=== PATIENT | female | born 1960 | race Caucasian/White ===

== ENCOUNTER → 2017-08-23 08:55 | Outpatient (CLI) | payer OTHER, SELFPAY ==
--- NOTE | 2017-08-23 | DI.MG.S_ITS ---
UNILATERAL RIGHT DIGITAL DIAGNOSTIC MAMMOGRAM 3D/2D WITH ADDITIONAL VIEWS: 08/23/2017 CLINICAL: Additional evaluation requested from prior study. Family history of breast cancer. Comparison is made to exams dated: 08/05/2017 mammogram, 07/05/2016 mammogram, and 07/04/2015 mammogram - [facility]. The tissue of the right breast is heterogeneously dense. This may lower the sensitivity of mammography. There is a 0.9 cm x 1 cm oval equal density mass in the right breast at 3 o'clock anterior depth. This is seen in additional views. No other significant masses or calcifications are seen in the breast. IMPRESSION: INCOMPLETE: NEEDS ADDITIONAL IMAGING EVALUATION The 0.9 cm x 1 cm oval equal density mass in the right breast is indeterminate. An ultrasound is recommended. This exam was interpreted at Station ID: [id number]. NOTE: For mammograms, a report in lay terms will be sent to the patient. Approximately 15% of breast malignancies will not be visualized mammographically. In the management of a palpable breast mass, a negative mammogram must not discourage biopsy of a clinically suspicious lesion. Electronically Signed By: Chanel fernandez/niya:08/23/2017 11:09:30 letter sent: Additional Imaging Needed ACR BI-RADS Category 0: Incomplete 3340F
--- NOTE | 2017-08-23 08:58 | DI.US.S_ITS ---
ULTRASOUND OF RIGHT BREAST: 08/23/2017 CLINICAL: Patient returns for additional imaging over a suspected mass in the right breast. Comparison is made to exams dated: 08/05/2017 mammogram, 07/05/2016 mammogram, and 07/04/2015 mammogram - [facility]. Color flow and real-time ultrasound of the right breast were performed on the areas of interest. Benson scale images of the real-time examination were reviewed. There is a 0.7 cm x 0.5 cm x 0.5 cm lobulated cyst with a septated internal wall in the right breast at 3 o'clock anterior depth. This lobulated cyst displays internal echoes and posterior acoustic enhancement. This correlates with mammography findings. IMPRESSION: PROBABLY BENIGN - FOLLOW-UP RECOMMENDED The 0.7 cm x 0.5 cm x 0.5 cm lobulated cyst in the right breast is consistent with complicated cysts and is probably benign. A follow-up ultrasound in 6 months is recommended to demonstrate stability. This exam was interpreted at Station ID: [id number]. Electronically Signed By: Chanel Wilson M.D. lk/:08/23/2017 13:04:54 letter sent: Followup Recommended Ultrasound BI-RADS: 3 Probably benign
== END ==
PROVIDERS: PCP Family Medicine; Visit Provider Family Medicine
DX: R92.8 Other abnormal and inconclusive findings on diagnostic imaging of breast (principal); Z80.3 Family history of malignant neoplasm of breast
CPT/HCPCS: 76642; 77065; G0279

== ENCOUNTER → 2017-10-10 12:36 | Outpatient (CLI) | payer OTHER, SELFPAY ==
--- NOTE | 2017-10-10 14:43 | DI.US.S_ITS ---
ULTRASOUND GUIDED ASPIRATION RIGHT BREAST WITH POST ULTRASOUND IMAGIN10/10/2017 CLINICAL: Cyst aspiration right breast. Correlation is made to exams dated: 08/23/2017 mammogram, 08/23/2017 ultrasound, and 08/05/2017 mammogram - [facility]. An aspiration was performed for the concerning 7 mm x 5 mm x 5 mm circumscribed lobulated cystic versus solid mass located in the right breast at 2 o'clock anterior depth. This was described on the previous ultrasound report. The skin was prepped in the usual manner. Local anesthetic was administered to the access site. The abnormality was approached from the lateral aspect. A 20 gauge needle was percutaneously placed into the abnormality under ultrasound guidance. Once the needle was documented to be in the correct location, 0.5 cc of clear yellow fluid was aspirated. The patient received additional local anesthetic during the procedure. A sterile dressing was applied to the access site. Post procedure ultrasound imaging demonstrates the abnormality to be no longer visible. The aspirated fluid was discarded with the patient's knowledge. IMPRESSION: ASPIRATION Aspiration of the 7 cm x 5 cm x 5 cm cystic versus solid mass in the right breast anterior depth was successfu, and the structure fully resolved establishing cyst as the original causel. Post ultrasound imaging revealed the abnormality to be no longer visible. Return to annual mammogram screening schedule is recommended. Ronak Raines M.D. [facility]/:10/11/2017 16:06:27
== END ==
PROVIDERS: PCP Family Medicine; Visit Provider Surgery
DX: R92.8 Other abnormal and inconclusive findings on diagnostic imaging of breast (principal); N60.01 Solitary cyst of right breast
CPT/HCPCS: 10022; 76942

== ENCOUNTER → 2018-02-10 09:51 | Outpatient (CLI) | payer OTHER, SELFPAY ==
--- NOTE | 2018-02-10 09:54 | DI.RAD.S_ITS ---
PROCEDURE: XR CHEST 2V INDICATIONS: cough TECHNIQUE: 2 views of the chest were acquired. COMPARISON: [facility], , CHEST 2 VIEW, 05/30/2017, 14:48. FINDINGS: Surgical changes and devices: None. Lungs and pleura: No pleural effusions or pneumothorax. Lungs are clear. Mediastinum: Mediastinal contours are normal. Heart size is normal. Bones and chest wall: No suspicious bony abnormalities. Soft tissues appear unremarkable. IMPRESSION: No acute disease. Dictated by: Prosper Hood M.D. on 02/10/2018 at 10:36 Approved by: Prosper Hood M.D. on 02/10/2018 at 10:37
== END ==
PROVIDERS: PCP Family Medicine; Visit Provider Registered Nurse
DX: R05 Cough (principal)
CPT/HCPCS: 71046

== ENCOUNTER → 2018-07-14 15:19 | Outpatient (CLI) | payer OTHER, SELFPAY ==
--- NOTE | 2018-07-14 | DI.RAD.S_ITS ---
PROCEDURE: XR WRIST RT MIN 3V INDICATIONS: RT HAND/WRIST PAIN, POST FALL TECHNIQUE: 4 views of the wrist were acquired. COMPARISON: None. FINDINGS: Bones: No fractures or dislocations. No suspicious bony lesions. First CMC and triscaphe joint degeneration Scaphoid view: Negative Soft tissues: No suspicious soft tissue calcifications. IMPRESSION: No fracture. If the patient's symptoms do not improve recommend followup radiographs in 10 days to assess for healing sclerosis/occult injury. Dictated by: Prosper Hood M.D. on 07/14/2018 at 16:10 Approved by: Prosper Hood M.D. on 07/14/2018 at 16:11
--- NOTE | 2018-07-14 | DI.RAD.S_ITS ---
PROCEDURE: XR HAND RT MIN 3V INDICATIONS: RT HAND/WRIST PAIN, POST FALL TECHNIQUE: 3 views of the hand(s) acquired. COMPARISON: None. FINDINGS: Bones: No fractures or dislocations. Carpal bones are normally aligned. No suspicious bony lesions. First CMC and triscaphe joint degeneration Soft tissues: No suspicious soft tissue calcifications. IMPRESSION: No fracture. If the patient's symptoms do not improve recommend followup radiographs in 10 days to assess for healing sclerosis/occult injury. Dictated by: Prosper Hood M.D. on 07/14/2018 at 16:07 Approved by: Prosper Hood M.D. on 07/14/2018 at 16:10
== END ==
PROVIDERS: PCP Nurse Practitioner Family; Visit Provider Family Medicine
DX: M79.641 Pain in right hand (principal); M25.531 Pain in right wrist; M18.11 Unilateral primary osteoarthritis of first carpometacarpal joint, right hand
CPT/HCPCS: 73110; 73130

== ENCOUNTER → 2018-08-06 14:29 | Outpatient (CLI) | payer OTHER, SELFPAY ==
--- NOTE | 2018-08-06 | DI.MG.S_ITS ---
BILATERAL DIGITAL SCREENING MAMMOGRAM 3D/2D WITH CAD: 08/06/2018 CLINICAL: Routine screening. Family history of breast cancer. Comparison is made to exams dated: 08/05/2017 mammogram, 07/05/2016 mammogram, and 07/04/2015 mammogram - [facility]. The tissue of both breasts is heterogeneously dense. This may lower the sensitivity of mammography. Current study was also evaluated with a Computer Aided Detection (CAD) system. There is a cluster of fine calcifications in the left breast at 6 o'clock anterior depth. No other significant masses, calcifications, or other findings are seen in either breast. IMPRESSION: INCOMPLETE: NEEDS ADDITIONAL IMAGING EVALUATION The cluster of fine calcifications in the left breast is indeterminate. A diagnostic mammogram is recommended. This exam was interpreted at Station ID: [id number]. NOTE: For mammograms, a report in lay terms will be sent to the patient. Approximately 15% of breast malignancies will not be visualized mammographically. In the management of a palpable breast mass, a negative mammogram must not discourage biopsy of a clinically suspicious lesion. Electronically Signed By: Prachi vincent/niya:08/06/2018 20:54:09 copy to: Rosie Singletary letter sent: Additional Imaging Needed ACR BI-RADS Category 0: Incomplete 3340F
== END ==
PROVIDERS: PCP Nurse Practitioner Family; Visit Provider Family Medicine
DX: Z12.31 Encounter for screening mammogram for malignant neoplasm of breast (principal); Z80.3 Family history of malignant neoplasm of breast
CPT/HCPCS: 77063; 77067

== ENCOUNTER → 2018-08-14 14:15 | Outpatient (CLI) | payer OTHER, SELFPAY ==
--- NOTE | 2018-08-14 | DI.US.S_ITS ---
LIMITED ULTRASOUND OF LEFT BREAST: 08/14/2018 CLINICAL: Additional imaging of left breast. Comparison is made to exams dated: 08/14/2018 mammogram, 08/06/2018 mammogram, 08/23/2017 mammogram, and 08/05/2017 mammogram - [facility]. Real-time and Doppler ultrasound of the left breast 6-7 o'clock region were performed. Benson scale images of the real-time examination were reviewed. Targeted ultrasound along the 5-7 o'clock positions of the left breast demonstrates no ultrasound correlate for the grouped coarse and punctate calcifications measuring 0.3 x 0.2 x 0.2 cm near the 6-7 o'clock positions seen on comparison screening and diagnostic mammography. No masses or abnormalities are identfiied by targeted ultrasound. IMPRESSION: PROBABLY BENIGN Targeted ultrasound along the 5-7 o'clock positions of the left breast demonstrates no ultrasound correlate for the grouped coarse and punctate calcifications measuring 0.3 x 0.2 x 0.2 cm near the 6-7 o'clock positions seen on comparison screening and diagnostic mammography. A follow-up mammogram in 6 months is recommended to demonstrate stability. The patient is advised to monitor her breasts and to return sooner for re-evaluation should she feel anything grow or change. This exam was interpreted at Station ID: [id number]. Electronically Signed By: Dorian Dillard M.D. ecl/:08/15/2018 08:47:54 copy to: Rosie Singletary letter sent: Followup Recommended Ultrasound BI-RADS: 3 Probably benign
--- NOTE | 2018-08-14 | DI.MG.S_ITS ---
UNILATERAL LEFT DIGITAL DIAGNOSTIC MAMMOGRAM 3D/2D WITH ADDITIONAL VIEWS: 08/14/2018 CLINICAL: Additional evaluation requested from prior study. Comparison is made to exams dated: 08/06/2018 mammogram, 08/23/2017 mammogram, and 08/05/2017 mammogram - [facility]. The tissue of left breast is heterogeneously dense. This may lower the sensitivity of mammography. Previously identified calcifications in the left breast at 6 o'clock position anterior depth on comparison screening mammograms persists with additional views. These demonstrate a grouped distribution with coarse and punctate morphology, measure 0.3 x 0.2 x 0.2 cm in extent, and localize near the 6-7 o'clock positions on additional views. IMPRESSION: INCOMPLETE: NEEDS ADDITIONAL IMAGING EVALUATION 0.3 x 0.2 x 0.2 cm persistent grouped coarse and punctate calcifications in the left breast near 6-7 o'clock position. A targeted ultrasound is recommended for further evaluation, and will be performed immediately following this exam. This exam was interpreted at Station ID: [id number]. NOTE: For mammograms, a report in lay terms will be sent to the patient. Approximately 15% of breast malignancies will not be visualized mammographically. In the management of a palpable breast mass, a negative mammogram must not discourage biopsy of a clinically suspicious lesion. Electronically Signed By: Dorian Dillard M.D. ecl/:08/14/2018 15:12:52 copy to: Rosie Singletary [facility] BI-RADS Category 0: Incomplete 3340F
== END ==
PROVIDERS: PCP Nurse Practitioner Family; Visit Provider Family Medicine
DX: R92.1 Mammographic calcification found on diagnostic imaging of breast (principal)
CPT/HCPCS: 76642; 77065; G0279

== ENCOUNTER → 2019-01-29 16:02 | Outpatient (CLI) | payer OTHER, SELFPAY ==
--- NOTE | 2019-01-29 | DI.RAD.S_ITS ---
PROCEDURE: XR HAND LT 2V INDICATIONS: BILATERAL THUMB JOINT PAIN TECHNIQUE: 3 views of the hand(s) acquired. COMPARISON: [facility], CR, XR HAND RT MIN 3V, 07/14/2018, 15:25. FINDINGS: Bones: No fractures or dislocations. Carpal bones are normally aligned. No suspicious bony lesions. Mild first CMC degenerative narrowing. Soft tissues: No suspicious soft tissue calcifications. IMPRESSION: Mild first CMC osteoarthritis. Dictated by: Ronda Henley M.D. on 01/29/2019 at 17:58 Approved by: Ronda Henley M.D. on 01/29/2019 at 17:58
--- NOTE | 2019-01-29 | DI.RAD.S_ITS ---
PROCEDURE: XR HAND RT 2V INDICATIONS: BILATERAL THUMB JOINT PAIN TECHNIQUE: 3 views of the hand(s) acquired. COMPARISON: [facility], , XR HAND RT MIN 3V, 07/14/2018, 15:25. FINDINGS: Bones: No fractures or dislocations. Carpal bones are normally aligned. No suspicious bony lesions. First CMC degenerative narrowing is present. Soft tissues: No suspicious soft tissue calcifications. IMPRESSION: First CMC osteoarthritis. Dictated by: Ronda Henley M.D. on 01/29/2019 at 17:57 Approved by: Ronda Henley M.D. on 01/29/2019 at 17:58
== END ==
PROVIDERS: PCP Nurse Practitioner Family; Visit Provider Nurse Practitioner Family
DX: M25.542 Pain in joints of left hand (principal); M25.541 Pain in joints of right hand; M18.0 Bilateral primary osteoarthritis of first carpometacarpal joints
CPT/HCPCS: 73120

== ENCOUNTER → 2019-04-20 08:14 | Outpatient (CLI) | payer OTHER, SELFPAY ==
--- NOTE | 2019-04-20 | DI.MG.S_ITS ---
UNILATERAL LEFT DIGITAL DIAGNOSTIC MAMMOGRAM 3D/2D: 04/20/2019 CLINICAL: Short term follow up. Comparison is made to exams dated: 08/14/2018 mammogram, 08/06/2018 mammogram, 08/05/2017 mammogram, 07/05/2016 mammogram, and 08/14/2018 [facility]. The tissue of left breast is heterogeneously dense. This may lower the sensitivity of mammography. Previously identified grouped coarse and punctate calcifications measuring approximately 0.3 x 0.2 x 0.2 cm in extent near the 6-7 o'clock positions on comparison screening mammogram of 08/06/28 and diagnostic mammograms of 08/13/18 appear stable in appearance to prior exams. IMPRESSION: PROBABLY BENIGN Previously identified grouped coarse and punctate calcifications measuring approximately 0.3 x 0.2 x 0.2 cm in extent near the 6-7 o'clock positions on comparison screening mammogram of 08/06/28 and diagnostic mammograms of 08/13/18 appear stable in appearance to prior exams. A follow-up mammogram in 6 months is recommended to demonstrate stability. Patient will be due for bilateral mammography at that time. These findings and recommendations were discussed with the patient by telephone by Dr. Dillard at approximately 12:10 pm on 04/20/2019. The patient was advised to monitor her breasts and to return sooner for reevaluation if she feels anything grow or change in her breasts. This exam was interpreted at Station ID: [id number]. NOTE: For mammograms, a report in lay terms will be sent to the patient. Approximately 15% of breast malignancies will not be visualized mammographically. In the management of a palpable breast mass, a negative mammogram must not discourage biopsy of a clinically suspicious lesion. Electronically Signed By: Dorian Dillard M.D. ecl/:04/20/2019 12:12:06 letter sent: Followup Recommended ACR BI-RADS Category 3: Probably benign 3343F
== END ==
PROVIDERS: PCP Nurse Practitioner Family; Visit Provider Nurse Practitioner Family
DX: R92.8 Other abnormal and inconclusive findings on diagnostic imaging of breast (principal); R92.1 Mammographic calcification found on diagnostic imaging of breast
CPT/HCPCS: 77065; G0279

== ENCOUNTER 2019-04-30 09:44 | Outpatient (CLI) | payer OTHER, SELFPAY | END 2019-05-05 09:36 | disposition home or self-care (01) | PROVIDERS: PCP Nurse Practitioner Family; Visit Provider Nurse Practitioner Family | DX: R20.9 Unspecified disturbances of skin sensation (principal) | CPT/HCPCS: 95886; 95911 ==

== ENCOUNTER → 2019-10-02 08:02 | Outpatient (CLI) | payer OTHER, SELFPAY ==
--- NOTE | 2019-10-02 | DI.MG.S_ITS ---
BILATERAL DIGITAL DIAGNOSTIC MAMMOGRAM 3D/2D SHORT-TERM FOLLOW-UP: 10/02/2019 CLINICAL: Short follow up due bilateral. Comparison is made to exams dated: 04/20/2019 mammogram, 08/14/2018 mammogram, 08/06/2018 mammogram, 08/05/2017 mammogram, and 07/05/2016 mammogram - [facility]. The tissue of both breasts is heterogeneously dense. This may lower the sensitivity of mammography. There are stable grouped amorphous coarse calcifications in the left breast at 6 o'clock anterior depth. These are seen in additional views. No suspicious changes. No other significant masses, calcifications, or other findings are seen in either breast. IMPRESSION: PROBABLY BENIGN The stable grouped amorphous coarse calcifications in the left breast most likely are fat necrosis or a degenerating fibroadenoma and are probably benign. A follow-up left mammogram in 6 months is recommended to demonstrate continued stability. The right breast mammogram is stable. Findings and recommendations were conveyed to the patient at time of exam. This exam was interpreted at Station ID: [id number]. NOTE: For mammograms, a report in lay terms will be sent to the patient. Approximately 15% of breast malignancies will not be visualized mammographically. In the management of a palpable breast mass, a negative mammogram must not discourage biopsy of a clinically suspicious lesion. Electronically Signed By: Prachi vincent/:10/02/2019 09:28:47 letter sent: Followup Recommended ACR BI-RADS Category 3: Probably benign 3343F
== END ==
PROVIDERS: Referring Provider Nurse Practitioner Family; Visit Provider Nurse Practitioner Family
DX: R92.8 Other abnormal and inconclusive findings on diagnostic imaging of breast (principal); R92.1 Mammographic calcification found on diagnostic imaging of breast
CPT/HCPCS: 77066; G0279

== ENCOUNTER → 2020-03-24 14:53 | Outpatient (CLI) | payer OTHER, SELFPAY ==
--- NOTE | 2020-03-24 | DI.MG.S_ITS ---
UNILATERAL LEFT DIGITAL DIAGNOSTIC MAMMOGRAM 3D/2D SHORT-TERM FOLLOW-UP: 03/24/2020 CLINICAL: Patient returns for a 6 month follow up of the left breast. Comparison is made to exams dated: 10/02/2019 mammogram, 04/20/2019 mammogram, and 08/14/2018 mammogram - [facility]. The tissue of left breast is heterogeneously dense. This may lower the sensitivity of mammography. There are stable grouped amorphous coarse calcifications in the left breast at 6 o'clock anterior depth. These are seen in additional views. No other significant masses or calcifications are seen in the breast. IMPRESSION: PROBABLY BENIGN The stable grouped amorphous coarse calcifications in the left breast most likely are fat necrosis or a degenerating fibroadenoma and are probably benign. A follow-up mammogram in 6 months is recommended to demonstrate stability. Future imaging is recommended as follows: August 2020 follow-up left mammogram at the time of bilateral sceening. This exam was interpreted at Station ID: [id number]. NOTE: For mammograms, a report in lay terms will be sent to the patient. Approximately 15% of breast malignancies will not be visualized mammographically. In the management of a palpable breast mass, a negative mammogram must not discourage biopsy of a clinically suspicious lesion. Electronically Signed By: Juan M Mc acr/:03/24/2020 15:43:12 letter sent: Followup Recommended ACR BI-RADS Category 3: Probably benign 3343F
== END ==
PROVIDERS: Referring Provider Nurse Practitioner Family; Visit Provider Nurse Practitioner Family
DX: R92.8 Other abnormal and inconclusive findings on diagnostic imaging of breast (principal); R92.1 Mammographic calcification found on diagnostic imaging of breast
CPT/HCPCS: 77065; G0279

== ENCOUNTER → 2020-07-13 07:31 | Outpatient (CLI) | payer OTHER, SELFPAY ==
[2020-07-13] MEDS: COVID-19 VACC #1, MRNA(MOD) 100 MCG/0.5 ML VIAL IM (07:41)
== END ==
PROVIDERS: Referring Provider Internal Medicine; Visit Provider Internal Medicine
DX: Z23 Encounter for immunization (principal)
CPT/HCPCS: 0011A; 91301

== ENCOUNTER → 2020-08-10 07:45 | Outpatient (CLI) | payer OTHER, SELFPAY ==
[2020-08-10] MEDS: COVID-19 VACC #2, MRNA(MOD) 100 MCG/0.5 ML VIAL IM (07:48)
== END ==
PROVIDERS: Visit Provider Internal Medicine
DX: Z23 Encounter for immunization (principal)
CPT/HCPCS: 0012A; 91301

== ENCOUNTER → 2020-09-19 12:24 | Outpatient (CLI) | payer OTHER, SELFPAY ==
--- NOTE | 2020-09-19 | DI.RAD.S_ITS ---
PROCEDURE: XR CHEST 2V INDICATIONS: COUGH TECHNIQUE: 2 views of the chest were acquired. COMPARISON: [facility], , XR CHEST 2V, 02/10/2018, 10:53. [facility], , CHEST 2 VIEW, 05/30/2017, 14:48. FINDINGS: Surgical changes and devices: None. Lungs and pleura: Lungs are clear. No pleural effusions or pneumothorax. Mediastinum: Mediastinal contours are normal. Heart size is normal. Bones and chest wall: No suspicious bony abnormalities. Soft tissues appear unremarkable. IMPRESSION: No acute cardiopulmonary process demonstrated radiographically. Dictated by: Mike Kevin M.D. on 09/19/2020 at 13:44 Approved by: Mike Kevin M.D. on 09/19/2020 at 13:44
== END ==
PROVIDERS: PCP Family Medicine; Referring Provider Family Medicine; Visit Provider Family Medicine
DX: R05 Cough (principal); R07.89 Other chest pain; M54.6 Pain in thoracic spine
CPT/HCPCS: 71046

== ENCOUNTER → 2020-10-31 12:41 | Outpatient (CLI) | payer BC, SELFPAY ==
--- NOTE | 2020-10-31 | DI.MG.S_ITS ---
BILATERAL DIGITAL DIAGNOSTIC MAMMOGRAM 3D/2D: 10/31/2020 CLINICAL: Short follow up, due bilateral. Comparison is made to exams dated: 03/24/2020 mammogram, 10/02/2019 mammogram, 04/20/2019 mammogram, 08/14/2018 mammogram, 08/06/2018 mammogram, and 08/05/2017 mammogram - [facility]. The tissue of both breasts is heterogeneously dense. This may lower the sensitivity of mammography. There are stable grouped amorphous coarse calcifications in the left breast at 6 o'clock anterior depth. These are seen in additional views. These calcifications have been stable dating back to the prior exam from 08/14/2018, and are therefore considered benign. No other significant masses, calcifications, or other findings are seen in either breast. IMPRESSION: BENIGN The stable grouped amorphous coarse calcifications in the left breast most likely are fat necrosis or a degenerating fibroadenoma and are benign. There is no mammographic evidence of malignancy. A 1 year screening mammogram is recommended. This exam was interpreted at Station ID: [id number]. NOTE: For mammograms, a report in lay terms will be sent to the patient. Approximately 15% of breast malignancies will not be visualized mammographically. In the management of a palpable breast mass, a negative mammogram must not discourage biopsy of a clinically suspicious lesion. Electronically Signed By: Bowen andino/niya:10/31/2020 14:09:32 letter sent: Normal Exam ACR BI-RADS Category 2: Benign Finding(s) 3342F
== END ==
PROVIDERS: PCP Family Medicine; Referring Provider Family Medicine; Visit Provider Family Medicine
DX: R92.8 Other abnormal and inconclusive findings on diagnostic imaging of breast (principal); R92.1 Mammographic calcification found on diagnostic imaging of breast
CPT/HCPCS: 77066; G0279

== ENCOUNTER → 2021-04-05 17:04 | Outpatient (ROUT) | payer OTHER, SELFPAY ==
[2021-04-05 17:56] LABS: COVID19 - ADMIT (NP swab/PCR) Negative (Negative)
== END ==
PROVIDERS: PCP Family Medicine; Visit Provider Internal Medicine
DX: Z20.822 Contact with and (suspected) exposure to COVID-19 (principal)
CPT/HCPCS: U0003

== ENCOUNTER → 2022-02-13 17:31 | Outpatient (CLI) | payer OTHER, SELFPAY ==
--- NOTE | 2022-02-13 17:38 | DI.MG.S_ITS ---
BILATERAL DIGITAL SCREENING MAMMOGRAM 3D/2D WITH CAD: 02/13/2022 CLINICAL: Routine screening. Family history of breast cancer. Comparison is made to exams dated: 10/31/2020 mammogram, 03/24/2020 mammogram, 10/02/2019 mammogram, 04/20/2019 mammogram, and 08/06/2018 mammogram - [facility]. Both breasts are heterogeneously dense, which may obscure small masses (category c / 51-75% glandular tissue). Current study was also evaluated with a Computer Aided Detection (CAD) system. No significant masses, calcifications, or other findings are seen in either breast. There has been no significant interval change. IMPRESSION: NEGATIVE There is no mammographic evidence of malignancy. A 1 year screening mammogram is recommended. Based on the Tyrer Cuzick model (a risk assessment model) the patient's lifetime risk is 13.3% and her 10 year risk is 5.2%. According to the ACR, ACS, and NCCN guidelines, an annual breast MRI exam along with mammogram is recommended if the patient's lifetime risk is 20% or greater. This exam was interpreted at Station ID: [id number]. NOTE: For mammograms, a report in lay terms will be sent to the patient. Approximately 15% of breast malignancies will not be visualized mammographically. In the management of a palpable breast mass, a negative mammogram must not discourage biopsy of a clinically suspicious lesion. Electronically Signed By: Jann simmons/niya:02/14/2022 09:33:08 letter sent: Normal Exam ACR BI-RADS Category 1: Negative 3341F
== END ==
PROVIDERS: PCP Family Medicine; Referring Provider Family Medicine; Visit Provider Family Medicine
DX: Z12.31 Encounter for screening mammogram for malignant neoplasm of breast (principal); Z80.3 Family history of malignant neoplasm of breast
CPT/HCPCS: 77063; 77067

== ENCOUNTER → 2022-04-03 12:05 | Outpatient (CLI) | payer OTHER, SELFPAY ==
--- NOTE | 2022-04-03 12:10 | DI.RAD.S_ITS ---
PROCEDURE: XR FOREARM LT 2V INDICATIONS: PAIN TECHNIQUE: 2 views of the forearm were acquired. COMPARISON: None. FINDINGS: Bones: No fractures or dislocations. No suspicious bony lesions. Soft tissues: No suspicious soft tissue calcifications or masses. IMPRESSION: No fracture. No osseous lesion. If symptoms and/or clinical suspicion for pathology persists, further assessment with repeat radiographs (7-10 days) or advanced imaging (e.g. CT, MRI or bone scan) should be considered. Dictated by: Damari Low MD, PhD on 04/03/2022 at 13:34 Approved by: Damari Low MD, PhD on 04/03/2022 at 13:34
--- NOTE | 2022-04-03 12:10 | DI.RAD.S_ITS ---
PROCEDURE: XR ELBOW LT MIN 3V INDICATIONS: PAIN TECHNIQUE: 3 views of the elbow were acquired. COMPARISON: None. FINDINGS: Bones: No fractures or dislocations. No suspicious bony lesions. Soft tissues: No elbow joint effusion. No suspicious soft tissue calcifications. IMPRESSION: No fracture. No osseous lesion. If symptoms and/or clinical suspicion for pathology persists, further assessment with repeat radiographs (7-10 days) or advanced imaging (e.g. CT, MRI or bone scan) should be considered. Dictated by: Damari Low MD, PhD on 04/03/2022 at 13:34 Approved by: Damari Low MD, PhD on 04/03/2022 at 13:35
== END ==
PROVIDERS: PCP Family Medicine; Referring Provider Registered Nurse; Visit Provider Registered Nurse
DX: M79.602 Pain in left arm (principal)
CPT/HCPCS: 73080; 73090

== ENCOUNTER → 2022-09-21 16:17 | Outpatient (CLI) | payer OTHER, SELFPAY ==
--- NOTE | 2022-09-21 16:20 | DI.RAD.S_ITS ---
PROCEDURE: XR CHEST 2V INDICATIONS: Rib pain TECHNIQUE: 2 views of the chest were acquired. COMPARISON: [facility], CR, XR CHEST 2V, 09/19/2020, 12:27. FINDINGS: Surgical changes and devices: None. Lungs and pleura: Lungs are clear. No pleural effusions or pneumothorax. Mediastinum: Mediastinal contours are normal. Heart size is normal. Bones and chest wall: No suspicious bony abnormalities. Soft tissues appear unremarkable. IMPRESSION: No acute cardiopulmonary disease. Dictated by: Brian Millard [facility] Interpreted: Ronda Henley MD on 09/21/2022 at 16:45 Transcribed by: MARYANN on 09/21/2022 at 16:46 Approved by: Ronda Henley M.D. on 09/21/2022 at 22:37
== END ==
PROVIDERS: Referring Provider Registered Nurse; Visit Provider Registered Nurse
DX: R07.81 Pleurodynia (principal)
CPT/HCPCS: 71046

== ENCOUNTER → 2023-04-17 15:57 | Outpatient (CLI) | payer BC, SELFPAY ==
--- NOTE | 2023-04-17 | DI.MG.S_ITS ---
BILATERAL DIGITAL SCREENING MAMMOGRAM 3D/2D WITH CAD: 04/17/2023 CLINICAL: Routine screening. Family history of breast cancer. Comparison is made to exams dated: 02/13/2022 mammogram, 10/31/2020 mammogram, and 10/02/2019 mammogram - [facility]. Both breasts are heterogeneously dense, which may obscure small masses (category c / 51-75% glandular tissue). Current study was also evaluated with a Computer Aided Detection (CAD) system. No significant masses, calcifications, or other findings are seen in either breast. There has been no significant interval change. IMPRESSION: NEGATIVE There is no mammographic evidence of malignancy. A 1 year screening mammogram is recommended. Based on the Tyrer Cuzick model (a risk assessment model) the patient's lifetime risk is 15.4% and her 10 year risk is 6.4%. According to the ACR, ACS, and NCCN guidelines, an annual breast MRI exam along with mammogram is recommended if the patient's lifetime risk is 20% or greater. This exam was interpreted at Station ID: [id number]. NOTE: For mammograms, a report in lay terms will be sent to the patient. Approximately 15% of breast malignancies will not be visualized mammographically. In the management of a palpable breast mass, a negative mammogram must not discourage biopsy of a clinically suspicious lesion. Electronically Signed By: Bowen andino/niya:04/18/2023 08:45:52 letter sent: Normal Exam ACR BI-RADS Category 1: Negative 3341F
== END ==
PROVIDERS: Referring Provider Family Medicine; Visit Provider Family Medicine
DX: Z12.31 Encounter for screening mammogram for malignant neoplasm of breast (principal); Z80.3 Family history of malignant neoplasm of breast; R92.333 Mammographic heterogeneous density, bilateral breasts
CPT/HCPCS: 77063; 77067

== ENCOUNTER → 2024-03-13 15:38 | Outpatient (CLI) | payer BC, SELFPAY ==
--- NOTE | 2024-03-13 15:39 | DI.MRI.S_ITS ---
PROCEDURE: MR KNEE RT WO CON INDICATIONS: INTERNAL DERANGEMENT OF RT KNEE TECHNIQUE: Noncontrast sagittal PD fast spin echo and T2 fast spin echo with fat saturation, sagittal 3-D FLASH with fat saturation; coronal T1 spin echo and PD fast spin echo with fat saturation, and axial PD fast spin echo with fat saturation through the knee. COMPARISON: None. FINDINGS: Image quality: Excellent. Menisci: In the medial meniscus, there is a small horizontal undersurface tear of the meniscus body (series 10, image 17). No extrusion of the medial meniscus body. The lateral meniscus is unremarkable. Cruciate ligaments: The anterior and posterior cruciate ligaments appear intact. Medial structures: Grade 1 sprain of the MCL. Lateral structures: The lateral collateral ligament, long and short heads of the biceps femoris tendon appear intact. The popliteus tendon appears normal; the popliteofibular ligament appears intact. The posterosuperior and anteroinferior popliteomeniscal fascicles appear intact. The arcuate and fabellofibular ligaments appear intact, on either side of the lateral inferior geniculate artery. Iliotibial band appears normal. Anterior structures: The quadriceps tendon is unremarkable. Mild tendinosis of the distal patellar tendon. Mild suprapatellar fat pad edema. The medial and lateral patellofemoral ligaments are intact. Alignment of the patellofemoral compartment is anatomic. Bones and cartilage: There is near complete chondral denudation of the median ridge and the medial patellar facet, with mild subchondral marrow edema in the median ridge. Full-thickness chondral loss of the medial trochlea with mild subchondral cystic changes. Small area of full-thickness chondral loss in the central trochlea, with mild subchondral cystic changes. In the medial compartment, there is complete chondral denudation in the weight-bearing portion of the medial femoral condyle, with mild subchondral marrow edema. There is additional mild chondral thinning in the medial tibial plateau. Small subchondral fracture of the peripheral aspect of the medial tibial plateau, with marked marrow edema. The cartilage of the lateral compartment is well maintained. Joint space: Small knee effusion. Trace popliteal cyst. Popliteal vasculature is unremarkable. No intra-articular body. IMPRESSION: 1. Tear of the medial meniscus. 2. Grade 1 sprain of the MCL. 3. 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 4. Small subchondral fracture of the medial tibial plateau, with marked marrow edema. Dictated by: Albertina Alejandre M.D. on 03/13/2024 at 16:50 Approved by: Albertina Alejandre M.D. on 03/13/2024 at 17:01
== END ==
PROVIDERS: PCP Family Medicine; Referring Provider Orthopaedic Surgery Foot and Ankle Surgery; Visit Provider Orthopaedic Surgery Foot and Ankle Surgery
DX: S83.241A Other tear of medial meniscus, current injury, right knee, initial encounter (principal); S83.411A Sprain of medial collateral ligament of right knee, initial encounter; S82.141A Displaced bicondylar fracture of right tibia, initial encounter for closed fracture; M22.41 Chondromalacia patellae, right knee; M23.91 Unspecified internal derangement of right knee
CPT/HCPCS: 73721

== ENCOUNTER → 2024-05-05 16:13 | Outpatient (CLI) | payer BC, SELFPAY ==
--- NOTE | 2024-05-05 16:14 | DI.MG.S_ITS ---
BILATERAL DIGITAL SCREENING MAMMOGRAM 3D/2D WITH CAD: 05/05/2024 CLINICAL: Routine screening. Family history of breast cancer. Comparison is made to exams dated: 04/17/2023 mammogram, 02/13/2022 mammogram, and 10/31/2020 mammogram - [facility]. The breasts are heterogeneously dense, which may obscure small masses (category c / 51-75% glandular tissue). Current study was also evaluated with a Computer Aided Detection (CAD) system. No significant masses, calcifications, or other findings are seen in either breast. There has been no significant interval change. IMPRESSION: NEGATIVE There is no mammographic evidence of malignancy. A 1 year screening mammogram is recommended. Based on the Tyrer Cuzick model (a risk assessment model) the patient's lifetime risk is 18.6% and her 10 year risk is 8.1%. According to the ACR, ACS, and NCCN guidelines, an annual breast MRI exam along with mammogram is recommended if the patient's lifetime risk is 20% or greater. This exam was interpreted at Station ID: [id number]. NOTE: For mammograms, a report in lay terms will be sent to the patient. Approximately 15% of breast malignancies will not be visualized mammographically. In the management of a palpable breast mass, a negative mammogram must not discourage biopsy of a clinically suspicious lesion. Electronically Signed By: Bowen andino/niya:05/06/2024 08:01:03 letter sent: Normal Exam ACR BI-RADS Category 1: Negative
== END ==
LOC: MAMMO 16:13
PROVIDERS: PCP Family Medicine; Referring Provider Family Medicine; Visit Provider Family Medicine
DX: Z12.31 Encounter for screening mammogram for malignant neoplasm of breast (principal); Z80.3 Family history of malignant neoplasm of breast
CPT/HCPCS: 77063; 77067